=== PATIENT | male | born 1995 | race Caucasian/White ===

== ENCOUNTER 2021-06-27 23:30 | Emergency (ER) | payer OTHER ==
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
[2021-06-27] MEDS ORDERED: IBUPROFEN 600 MG TABLET PO STA (23:54)
[2021-06-27] MEDS ORDERED: BACITRACIN ZINC OINT 1 PACKET TOP STA (23:55)
[2021-06-27] MEDS ORDERED: HYDROcod/ACETAM 5/325 MG TABLET PO STA (23:56)
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
[2021-06-28 01:21] VITALS: BP 139/92
== END 2021-06-28 01:47 | disposition home or self-care (01) ==
LOC: ED 23:30
DX: S20.221A Contusion of right back wall of thorax, initial encounter (principal); S80.211A Abrasion, right knee, initial encounter; S63.641A Sprain of metacarpophalangeal joint of right thumb, initial encounter; V29.9XXA Motorcycle rider (driver) (passenger) injured in unspecified traffic accident, initial encounter
CPT/HCPCS: 71101; 73140; 73562; 99284; A9270

== ENCOUNTER 2021-06-29 23:03 | Emergency (ER) | payer OTHER ==
[2021-06-29 23:10] VITALS: BP 162/84
[2021-06-29] MEDS ORDERED: oxyCODONE 5 MG TABLET PO STA (23:26)
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
[2021-06-29] MEDS ORDERED: oxyCODONE/ACET 5/325 Prepack 4 PO STA (23:30)
== END 2021-06-29 23:48 | disposition home or self-care (01) ==
LOC: ED 23:03
DX: S60.111A Contusion of right thumb with damage to nail, initial encounter (principal); S20.212A Contusion of left front wall of thorax, initial encounter; V28.0XXA Motorcycle driver injured in noncollision transport accident in nontraffic accident, initial encounter; Y92.410 Unspecified street and highway as the place of occurrence of the external cause
CPT/HCPCS: 99282; 99283; A9270

== ENCOUNTER 2021-09-21 11:31 | Outpatient (CLI) | payer OTHER | END 2021-09-21 23:59 | disposition home or self-care (01) | LOC: LAB.N 11:31 | PROVIDERS: ATTEND Family Medicine | DX: R07.0 Pain in throat (principal); Z20.822 Contact with and (suspected) exposure to COVID-19 | CPT/HCPCS: 87070; 87275; 87276 ==

== ENCOUNTER 2021-10-14 11:25 | Outpatient (CLI) | payer OTHER | END 2021-10-14 23:59 | disposition home or self-care (01) | LOC: LAB.N 11:25 | PROVIDERS: ATTEND Family Medicine | DX: R53.83 Other fatigue (principal); R53.81 Other malaise; Z20.822 Contact with and (suspected) exposure to COVID-19 ==

== ENCOUNTER 2021-11-23 08:00 | Outpatient (CLI) | payer OTHER ==
--- NOTE | 2021-11-23 15:04 | XRAY Report ---
PROCEDURE: Chest 2 View X-Ray INDICATIONS: R SIDED CHEST PX TECHNIQUE: 2 view(s) of the chest. COMPARISON: None. FINDINGS: Surgical changes and devices: None. Lungs and pleura: No pleural effusions or pneumothorax. Lungs are clear. Mediastinum: Mediastinal contours are normal. Heart size is normal. Bones and chest wall: No suspicious bony abnormalities. Soft tissues appear unremarkable. IMPRESSION: No acute pulmonary process. Reviewed by: Ayah James MD on 11/23/2021 3:02 PM [facility] Approved by: Ayah James MD on 11/23/2021 3:02 PM [facility] Station ID: [id number]
== END 2021-11-23 23:59 ==
LOC: DI.N 08:00
PROVIDERS: ATTEND Family Medicine
DX: R07.89 Other chest pain (principal)

== ENCOUNTER 2022-01-15 06:21 | Emergency (ER) | payer OTHER ==
--- OUTSIDE RECORDS SUMMARY | 2022-01-15 06:50 | EXTERNAL MEDICAL SUMMARY RPT | Continuity of Care Document ---
:1995 Author Organization [facility] Address [address] [place] [address] Phone Care Team Providers Name Role Phone Ziyad CISNEROS Unavailable Unavailable ENP, Chasity Willis MARKETING TEAM LEAD Unavailable Unavailab le Allergies No information. Encounters No information. Medications date description facility 20211123 prednisone All 20211119 azithromycin All 20211119 azithromycin All Problems date description facility 20211123 Unspecified chest pain All 20211123 Right sided chest pain All 20211123 Other chest pain All 20211123 CHEST 2 VIEW All 20211119 Pneumonia, unspecified organism All 20211119 Pneumonia due to Mycoplasma pneumoniae All 20211119 Atypical pneumonia All 20211119 Alcohol use All 20211119 Details of drug misuse behavior All Results No information. Vital Signs date measurement value source 20211119 weight_standard 153 lb 20211119 weight_metric 69.4 kg 20211119 temperature_standard 98.1 F 20211119 temperature_metric 36.72 C 20211119 respiration_rate 16 /min 20211119 height_standard 72 in 20211119 height_metric 182.88 cm 20211119 heart_rate 88 /min 20211119 BP_systolic 154 mm[Hg] 20211119 BP_diastolic 84 mm[Hg] 20211119 BMI 20.83 kg/m2 20211119 weight_standard 153 lb 20211119 weight_metric 69.4 kg 20211119 BMI 20.83 kg/m2 20211123 temperature_standard 98 F 20211123 temperature_metric 36.67 C 20211123 respiration_rate 18 /min 20211123 height_standard 72 in 20211123 height_metric 182.88 cm 20211123 heart_rate 79 /min 20211123 BP_systolic 138 mm[Hg] [id number] BP_diastolic 82 mm[Hg]
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
[2022-01-15] MEDS ORDERED: ACETAMINOPHEN 325 MG TABLET PO STA (07:22)
[2022-01-15] MEDS ORDERED: KETOROLAC 15 MG/ML VIAL IVP STA (07:22)
[2022-01-15] MEDS ORDERED: IOVERSOL 320 100 ML VIAL IVP ONE ×2 (07:49→08:32)
[2022-01-15 08:01] LABS: CALCIUM 8.9 mg/dL (8.5-10.3); CREATININE 1.1 mg/dL (0.6-1.2)
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
[2022-01-15 09:59] VITALS: BP 131/86
== END 2022-01-15 10:08 | disposition home or self-care (01) ==
LOC: ED 06:21
DX: S20.211A Contusion of right front wall of thorax, initial encounter (principal); S30.1XXA Contusion of abdominal wall, initial encounter; V20.0XXA Motorcycle driver injured in collision with pedestrian or animal in nontraffic accident, initial encounter
CPT/HCPCS: 36415; 71260; 74177; 80048; 96374; 99282; 99284; A9270; Q9967